=== PATIENT | female | born 1990 | race Caucasian/White ===

== ENCOUNTER 2017-04-12 18:38 | Emergency (ER) | payer BC, OTHER ==
[2017-04-12 18:51] VITALS: PULSE 86; RESP 16; TEMP 97.6; O2SAT 99
[2017-04-12 19:11] VITALS: BP 123/79
== END 2017-04-12 19:08 | disposition home or self-care (01) ==
LOC: ED 18:38
DX: H69.82 Other specified disorders of Eustachian tube, left ear (principal)
CPT/HCPCS: 99282; 99283